=== PATIENT | male | born 2000 | race African-American/Black ===

== ENCOUNTER 2024-08-25 22:21 | Emergency (ER) | payer SELFPAY ==
[2024-08-26] MEDS ORDERED: Lidocaine 1% PF 5 ML VIAL ONE (01:22)
[2024-08-26] MEDS ORDERED: Boostrix 0.5 ML (Tdap) VIAL (>/=7 yrs of age) ONE (01:55)
[2024-08-26] MEDS ORDERED: Amoxicillin/Potassium Clav 875 MG TAB ONE (02:23)
== END 2024-08-26 02:29 | disposition home or self-care (01) ==
LOC: ERS 22:21 → EDBD 22:21 → ERS 08-26 02:29
DX: L03.012 Cellulitis of left finger (principal)
CPT/HCPCS: 10060; 90471; 90715